=== PATIENT | male | born 1990 | race Two or more races ===

== ENCOUNTER 2023-09-12 12:18 | Inpatient (IN) | payer OTHER ==
[2023-09-12 13:07] VITALS: BMI 25.7
[2023-09-12] MEDS ORDERED: BISMUTH SUBSALICYLATE 524 MG/30 ML PO PRN (14:24)
[2023-09-12] MEDS ORDERED: IBUPROFEN 400 MG TABLET (FP) PO PRN (14:24)
[2023-09-12] MEDS ORDERED: BENZOCAINE/MENTHOL (CHLORASEPTIC ) LOZENGE MM PRN (14:24)
[2023-09-12] MEDS ORDERED: NALOXONE HCL (KLOXXADO) 8 MG SPRAY NS PRN (14:24)
[2023-09-12] MEDS ORDERED: MAGNESIUM HYDROX 2400MG/30ML ORAL SUSPENSION 30 ML CUP PO PRN (14:24)
[2023-09-12] MEDS ORDERED: guaiFENesin 600 MG TABLET.ER (FP) PO PRN (14:24)
[2023-09-12] MEDS ORDERED: DICYCLOMINE HCL 10 MG CAPSULE PO PRN (14:24)
[2023-09-12] MEDS ORDERED: ACETAMINOPHEN 325 MG TABLET (FP) PO PRN (14:24)
[2023-09-12] MEDS ORDERED: NALOXONE HCL 0.4 MG/ML VIAL IM PRN (14:24)
[2023-09-12] MEDS ORDERED: P-EPHED 60MG/TRIPROLIDI 2.5MG TABLET PO PRN (14:24)
[2023-09-12] MEDS ORDERED: MAG HYDROX/AL HYDROX/SIMETH 30 ML UNIT-DOSE CUP PO PRN (14:24)
[2023-09-12] MEDS ORDERED: BENZONATATE 200 MG CAPSULE PO PRN (14:24)
[2023-09-12] MEDS ORDERED: LOPERAMIDE HCL 2 MG CAPSULE PO PRN (14:24)
[2023-09-12] MEDS ORDERED: POLYETHYLENE GLYCOL (HEALTHYLAX) 3350 17 GM PACKET PO PRN (14:24)
[2023-09-12] MEDS: hydrOXYzine PAMOATE 25 MG CAPSULE (FP) PO PRN (15:58)
[2023-09-12] MEDS: ONDANSETRON *ODT* 4 MG TABLET SL PRN (15:58)
[2023-09-12] MEDS: IBUPROFEN 600 MG TABLET (FP) PO PRN (15:58)
[2023-09-12] MEDS: THIAMINE HCL 100 MG TABLET (FP) PO SCH (22:29)
[2023-09-12] MEDS: MELATONIN 5 MG TABLETS PO SCH (22:29)
[2023-09-13] MEDS: hydrOXYzine PAMOATE 25 MG CAPSULE (FP) PO PRN (06:00)
[2023-09-13] MEDS: METHOCARBAMOL 500 MG TABLET PO PRN ×2 (06:01→17:22)
[2023-09-13] MEDS: PRENATAL VITAMINS W/ FOLIC ACID TABLET (FP) PO SCH (10:12)
[2023-09-13] MEDS: ONDANSETRON *ODT* 4 MG TABLET SL PRN (10:15)
[2023-09-13] MEDS: IBUPROFEN 600 MG TABLET (FP) PO PRN (10:15)
[2023-09-13] MEDS ORDERED: cloNIDine HCL 0.1 MG TABLET PO PRN (10:45)
[2023-09-13 11:25] LABS: HEMATOCRIT 38.3 % (35.4-49); HEMOGLOBIN 12.9 GM/dL (11.7-16.9); MCH 30.1 pg (25.7-33.7); MCHC 33.7 g/dl (32.0-35.9); MEAN CELL VOLUME 89.2 fl (80-96); MEAN PLT VOLUME 8.3 fl (7.5-11.1); PLATELET COUNT 248 10^3/uL (134-434); RBC 4.29 M/mm3 (4.00-5.60); RDW 12.9 % (11.9-15.9); WHITE BLOOD COUNT 6.4 K/mm3 (4.0-10.0)
[2023-09-13 11:34] LABS: POTASSIUM 4.3 mmol/L (3.5-5.1)
[2023-09-13 11:37] LABS: ALBUMIN 3.5 g/dl (3.4-5.0); CALCIUM 8.9 mg/dL (8.5-10.1)
[2023-09-13 11:38] LABS: BLOOD UREA NITROGEN 9.8 mg/dL (7-18)
[2023-09-13 11:41] LABS: CREATININE 0.7 mg/dL (0.55-1.3)
[2023-09-13 11:42] LABS: BILIRUBIN,TOTAL 0.9 mg/dL (0.2-1); TOT PROT 6.4 g/dl (6.4-8.2)
[2023-09-13] MEDS ORDERED: methaDONE HCL 10 MG TABLET (FOR DETOX USE ONLY) PO ONE (11:45)
[2023-09-13] MEDS: diazePAM 5 MG TABLET PO PRN ×2 (17:22→22:08)
[2023-09-13] MEDS: MELATONIN 5 MG TABLETS PO SCH (22:07)
[2023-09-13] MEDS: THIAMINE HCL 100 MG TABLET (FP) PO SCH (22:08)
[2023-09-14] MEDS: PRENATAL VITAMINS W/ FOLIC ACID TABLET (FP) PO SCH (10:14)
[2023-09-14] MEDS: THIAMINE HCL 100 MG TABLET (FP) PO SCH (21:59)
[2023-09-14] MEDS: MELATONIN 5 MG TABLETS PO SCH (22:00)
[2023-09-15] MEDS ORDERED: methaDONE HCL 10 MG TABLET (FOR DETOX USE ONLY) PO ONE (10:00)
[2023-09-15] MEDS: PRENATAL VITAMINS W/ FOLIC ACID TABLET (FP) PO SCH (10:22)
[2023-09-15] MEDS: MELATONIN 5 MG TABLETS PO SCH (23:06)
[2023-09-15] MEDS: THIAMINE HCL 100 MG TABLET (FP) PO SCH (23:06)
[2023-09-16 09:50] VITALS: BP 122/82; PULSE 91; RESP 16; TEMP 98.1
[2023-09-16] MEDS: PRENATAL VITAMINS W/ FOLIC ACID TABLET (FP) PO SCH (10:08)
[2023-09-17] MEDS ORDERED: methaDONE HCL 10 MG TABLET (FOR DETOX USE ONLY) PO ONE (10:00)
== END 2023-09-16 12:05 | disposition home or self-care (01) | DRG 773 ==
LOC: YASAS 12:18 → Y6N 14:25
PROVIDERS: ADMIT Allergy & Immunology; ATTEND Surgery
PROC: HZ2ZZZZ Detoxification Services for Substance Abuse Treatment (ICD-10-PCS; principal; 2023-09-12)
DX: F11.23 Opioid dependence with withdrawal (principal); F12.20 Cannabis dependence, uncomplicated
CPT/HCPCS: 36415; 80053; 85027; 86780; 87635; 87811; 93005; 93010; Q0162